=== PATIENT | female | born 1970 | race Caucasian/White ===

== ENCOUNTER 2023-07-04 04:00 | Day surgery (SDC) | payer BC ==
[~2023-07-04] VITALS: Ht 149.9 cm; Wt 78.0 kg
[2023-07-04] MEDS ORDERED: ACETAMINOPHEN 500 MG TABLET ONE (04:30)
[2023-07-04] MEDS ORDERED: ONDANSETRON 4 MG ODT TAB ONE (05:13)
[2023-07-04] MEDS ORDERED: CELECOXIB 200 MG CAPSULE ONE (05:14)
[2023-07-04] MEDS ORDERED: GABAPENTIN 400 MG CAPSULE ONE (05:14)
[2023-07-04] MEDS ORDERED: SCOPOLAMINE HYDROBROMIDE 1 MG PATCH .72 H (TRANSDERM-SCOP) TD ONE ×2 (05:14→06:00)
[2023-07-04 05:39] VITALS: PULSE 74; RESP 18; TEMP 98
[2023-07-04] MEDS ORDERED: VANCOMYCIN HCL 1,000 MG in NS 250 ML IV ONE (06:00)
[2023-07-04] MEDS ORDERED: ONDANSETRON 4 MG ODT TAB PO ONE (06:00)
[2023-07-04] MEDS ORDERED: CELECOXIB 200 MG CAPSULE PO ONE (06:00)
[2023-07-04] MEDS ORDERED: ACETAMINOPHEN 500 MG TABLET PO ONE (06:00)
[2023-07-04] MEDS ORDERED: GABAPENTIN 400 MG CAPSULE PO ONE (06:00)
[2023-07-04] MEDS ORDERED: oxyCODONE HCL 10 MG TAB.ER.12H PO ONE ×2 (06:00→07:13)
[2023-07-04] MEDS ORDERED: CEFAZOLIN SOD 2 GM in D5W 50 ML IV ONE (06:00)
[2023-07-04] MEDS ORDERED: MIDAZOLAM HCL 2 MG/2 ML VIAL (VERSED) ONE ×2 (07:20→07:26)
[2023-07-04] MEDS ORDERED: BUPIVACAINE /PF 0.25% 30 ML VIAL INJ ONE (07:20)
[2023-07-04] MEDS ORDERED: VANCOMYCIN HCL 1000 MG/VIAL IV ONE (07:20)
[2023-07-04] MEDS ORDERED: EPINEPHRINE HCL/PF 1 MG/ML AMP ONE (07:20)
[2023-07-04] MEDS ORDERED: TRANEXAMIC ACID 1,000 MG/10 ML VIAL ONE (07:20)
[2023-07-04] MEDS ORDERED: LR 1,000 ML IV.SOLN IV ONE (07:20)
[2023-07-04] MEDS ORDERED: ROPIVACAINE HCL/PF 5 MG/ML 0.5% 30 ML VIAL ONE (07:20)
[2023-07-04] MEDS ORDERED: KETOROLAC TROMETHAMINE 30 MG VIAL ONE (07:20)
[2023-07-04] MEDS ORDERED: fentaNYL CITRATE/PF 100 MCG/2 ML AMP ONE (07:21)
[2023-07-04] MEDS ORDERED: MORPHINE SULFATE 10MG/10ML PF AMP ONE (07:37)
[2023-07-04] MEDS ORDERED: LR 1,000 ML IV SCH (10:00)
[2023-07-04] MEDS ORDERED: DIPHENHYDRAMINE INJ 50 MG/ML VIAL IVP PRN (10:00)
[2023-07-04] MEDS ORDERED: HYDROcodone/ACETAMIN 5-325 MG TAB (NORCO/ VICODIN) PO PRN (10:15)
[2023-07-04] MEDS ORDERED: ONDANSETRON HCL 4 MG/2 ML VIAL IVP PRN (10:15)
[2023-07-04] MEDS ORDERED: HYDROcodone/ACETAMIN 7.5-325 MG TAB PO PRN (10:15)
[2023-07-04 10:22] VITALS: BP_SYST 133
[2023-07-04] MEDS ORDERED: ONDANSETRON HCL 4 MG/2 ML VIAL ONE (10:38)
[2023-07-04] MEDS ORDERED: DIPHENHYDRAMINE INJ 50 MG/ML VIAL ONE (12:37)
[2023-07-04] MEDS ORDERED: CEFAZOLIN 1 GM IVPB PREMIX 50 ML IV SCH (16:00)
== END 2023-07-04 14:18 | disposition home or self-care (01) ==
LOC: SDS 04:00 → SMU 04:00 → EDSTATUS 07:00 → SDS 14:18
PROVIDERS: ATTEND Orthopaedic Surgery
DX: M17.0 Bilateral primary osteoarthritis of knee (principal); Z88.0 Allergy status to penicillin
CPT/HCPCS: 27447; 97162; 86886; 86900; 86901; 36415; 73560; 97110; 97530; 97116; 88305; 88311; Q0162; J3490 ×2; J0690; J1200; J0171; J1885; J3465; J2405; J3370; J3010; J2274; J7060; J7120; J7050; C1713; C1776